=== PATIENT | male | born 1990 | race African-American/Black ===

== ENCOUNTER 2018-09-13 21:16 | Emergency (ER) | payer SELFPAY ==
[~2018-09-13] VITALS: Ht 177.8 cm; Wt 113.4 kg
[2018-09-13 21:24] VITALS: BP 171/108
--- NOTE | 2018-09-13 21:24 | NUR ---
PT [facility] FROM HOME FOR S/I, TOOK OXY PILLS AND DRANK ETOH; PT AAOX4, -SOB, NAD NOTED, PT ON MONITOR, VSS, PENDING MD KIMBALL
--- NOTE | 2018-09-13 21:25 | NUR ---
STARTED PT ON S/I PRECAUTIONS, ALL BELONGINGS IN UTILITY ROOM, WANDED BY SECURITY FOR SAFETY, [employer] OFFICERS AT BEDSIDE AT THIS TIME
[2018-09-13] MEDS ORDERED: IV NS 0.9% 500 ML BAG IV ONE (21:30)
[2018-09-13 21:38] LABS: BASOPHILS % (AUTO) 0.6 % (0.0-2.0); EOSINOPHILS % (AUTO) 0.2 % (0.0-6.0); HEMATOCRIT 51 % (39-51); HEMOGLOBIN 17.6 g/dL (13.5-17.5); LYMPHOCYTES # (AUTO) 1.5 /CMM (0.8-4.8); LYMPHOCYTES % (AUTO) 18.3 % (20.0-44.0); MEAN CORPUSCULAR HGB CONC 35 g/dl (31.0-36.0); MEAN CORPUSCULAR VOLUME 85 fL (80-96); MONOCYTES # (AUTO) 0.5 /CMM (0.1-1.30); MONOCYTES % (AUTO) 5.9 % (2.0-12.0); NEUTROPHILS # (AUTO) 6.1 /CMM (1.8-8.9); PLATELET COUNT (AUTO) 208 /CMM (150-450); RED BLOOD CELL COUNT(AUTO) 5.93 MIL/uL (4.5-6.0); WHITE BLOOD COUNT (AUTO) 8.2 K/uL (4.3-11.0)
--- NOTE | 2018-09-13 21:40 | NUR ---
URINE COLLECTED AND SENT TO LAB
[2018-09-13 21:47] LABS: CALCIUM, SERUM 9.2 mg/dL (8.5-10.1); CARBON DIOXIDE 28 mmol/L (21-32); CHLORIDE 104 mmol/L (98-107); CREATININE 0.9 mg/dL (0.6-1.3); GLUCOSE 132 mg/dL (74-106); POTASSIUM 3.4 mmol/L (3.5-5.1); SODIUM SERUM 141 mmol/L (136-145); UREA NITROGEN, BLOOD 9 mg/dL (7-18)
[2018-09-13 22:04] LABS: ALANINE AMINOTRANSFERASE 53 U/L (12-78); ALCOHOL, BLOOD 208 mg/dL (0-0); ALKALINE PHOSPHATASE 102 U/L (46-116); ASPARTATE AMINOTRANSFERASE 28 U/L (15-37); BILIRUBIN,DIRECT 0.1 mg/dL (0.0-0.2); TOTAL PROTEIN, SERUM 7.7 g/dL (6.4-8.2)
[2018-09-13 22:05] LABS: ACETAMINOPHEN 0 ug/ml (10-30); SALICYLATE < 0.2 mg/dL (2.8-20.0)
[2018-09-13 22:13] LABS: THYROID STIMULATING HORMONE 0.933 uIU/mL (0.358-3.74)
[2018-09-14] MEDS ORDERED: POTASSIUM CHLORIDE 20 MEQ TAB.PRT.SR PO ONE ×2 (00:40)
--- NOTE | 2018-09-14 01:48 | NUR ---
[place] [employer] SEAT CUSHION TRIMMER AT BEDSIDE
--- NOTE | 2018-09-14 02:51 | NUR ---
Patient discharged to home in stable condition. Written and verbal after care instructions given. Patient verbalizes understanding of instruction. IV removed. Catheter intact and site benign. Pressure and 4x4 applied to site. No bleeding noted.
== END 2018-09-14 02:54 | disposition home or self-care (01) ==
LOC: EDBD 21:21 → ER 21:21
DX: F32.9 Major depressive disorder, single episode, unspecified (principal); F10.10 Alcohol abuse, uncomplicated; E87.6 Hypokalemia; F17.200 Nicotine dependence, unspecified, uncomplicated; F12.10 Cannabis abuse, uncomplicated; I10 Essential (primary) hypertension; R00.0 Tachycardia, unspecified; Y90.7 Blood alcohol level of 200-239 mg/100 ml
CPT/HCPCS: 36415; 80048; 80076; 80307; 80329; 84443; 84484; 85025; 93005; 99284; J7040; 80305; G0480